=== PATIENT | female | born 1995 | race African-American/Black ===

== ENCOUNTER 2024-01-28 13:23 | Emergency (ER) | payer OTHER, SELFPAY ==
--- NOTE | ~2024-01-28 | US_ITS ---
EXAMINATION: ULTRASOUND PELVIC, CLINICAL INFORMATION: . Abdominal pain. COMPARISON: None. TECHNIQUE: Transabdominal imaging. Spectral Doppler and color Doppler exam was utilized. LMP: Uncertain FINDINGS: UTERUS: There is a single intrauterine gestation. motion and cardiac activity present. heart rate 150 bpm. lie is cephalic. Posterior's placenta. biometrics: 1.. Biparietal diameter. 4.53 cm. 19 weeks 5 days. 2. Occipital frontal diameter. 5.98 cm. 20 weeks 3 days. 3. Head circumference. 17.27 cm. 19 weeks 6 days. 4. Abdominal circumference. 14.06 cm. 19 weeks 4 days. 5. Femur length. 2.98 cm. 19 weeks 2 days. Gestational age from today's measurements 19 weeks 5 days. [place] 06/18/2024. Estimated weight 0 lbs. 10 oz. US/US OB limited IMPRESSION: Single intrauterine gestation with estimated gestational age of 19 weeks 5 days. heart rate 150 bpm. Electronically signed by: Ramos Hoffman MD 01/28/2024 03:25 PM EDT
[2024-01-28 13:41] VITALS: BP 140/72; PULSE 99; RESP 18; TEMP 37; O2SAT 100; BMI 22.6
--- NOTE | 2024-01-28 13:42 | ED.ABDPAIN ---
HPI - Abdominal Pain General Chief Complaint: Abdominal Pain Stated Complaint: Abd pain Time Seen by Provider: 01/28/24 15:54 Source: patient Mode of arrival: ambulatory Limitations: language barrier (Lux[place]bour[place] Creole speaking only, [employer] machine tool builder used) History of Present Illness ED Provider: Dr. Goyo Carpio HPI narrative: 28-year-old female Luxembour[place] Creole speaking only with sickle cell anemia last menstrual period 09/19/2024, 18 weeks and 4 days by dates who presents emergency department for evaluation of abdominal pain x2 weeks and foul-smelling urine x1 month. Patient states she has been having intermittent lower abdominal pain for the last 2 weeks. She states the last 1-2 minutes but comes on frequently. She states the pain often wakes her up at night. She states she has had no appetite and has had nausea but no vomiting. She denied fever, chills, cough, chest pain, shortness of breath, weakness or fatigue. She has noted urinary frequency and dysuria with a foul odor to her urine. The patient has not had any care for this . She states she lives in [place]. Related Data Previous Rx's ?Medication ?Instructions ?Recorded acetaminophen 500 mg tablet 500 mg PO Q6H PRN fever or pain 01/28/24 (Tylenol Extra Strength) #30 tabs cephalexin 500 mg capsule 500 mg PO TID 5 days #15 caps 01/28/24 ondansetron 4 mg disintegrating 4 mg PO Q6-8H PRN nausea and 01/28/24 tablet vomiting #20 tabs vitamins no.163-iron 1 tab PO DAILY 90 days #90 tabs 01/28/24 bis-gly 20 mg-folate no.10 1 mg tablet Allergies Allergy/AdvReac Type Severity Reaction Status Date / Time No Known Allergies Allergy Verified 01/28/24 13:45 Review of Systems Review of Systems Yes all other systems are reviewed and are negative [facility] Past Medical History [facility] Narrative: Social history: She denies tobacco, alcohol and drug use Physical Exam ED Vital Signs: Vital Signs - 24 hr 01/28/24 13:41 01/28/24 15:43 Temperature 98.6 F 98.2 F Pulse Rate 99 83 Respiratory Rate 18 16 Blood Pressure 140/72 H 111/71 Pulse Oximetry 100 97 Oxygen Delivery Method Room Air Room Air BMI result Body Mass Index 22.6 Vital signs revealed an elevated blood pressure of 140/72 on initial presentation but without treatment corrected to 111/71-initial elevated blood pressure may have been secondary to anxiety Exam: General: Awake, alert in no distress Head: Normocephalic, atraumatic EENT: PERRL, Lids normal, sclera normal, conjunctiva normal, nose normal , ears normal, throat without erythema or exudates Neck: Supple, no adenopathy Lung: breath sounds symmetric, no wheezing, rales or rhonchi Chest: symmetric movement, nontender Heart: regular rate and rhythm, normal S1, S2 no murmurs or rubs Abdomen: soft, gravid uterus with no tenderness, normoactive bowel sounds, no rebound, no voluntary or involuntary guarding Back: no vertebral tenderness, no CVAT Extremities: no deformities, moves all extremities symmetrically Neuro: Awake, alert, oriented, normal speech, cranial nerves intact, moves all extremities symmetrically Psych: Pleasant, cooperative Course Course Course Narrative: This is a Rapid Medical Examination (RME) performed by Shanika Samaniego PA-C in triage. Full HPI, ROS, assessment and treatment plan per primary provider in the Main ED. 28 yo [place] Creole speaking female here w/ lower abdominal pain/ pressure x2 wks. admits her urine has foul odor. no vaginal bleeding or discharge, dysuria. has not followed up with OBGYN for this . the last time she was a physician was when she was told she was . + well appearing, gravid abdomen. Plan: labs, UA, ultrasound Medical Decision Making Medical Decision Making MDM Narrative: 28-year-old female Luxem[place] Creole speaking only with sickle cell anemia last menstrual period 09/19/2024, 18 weeks and 4 days by dates who presents emergency department for evaluation of intermittent, brief (lasting 1-2 minutes but frequent) abdominal pain x2 weeks and foul-smelling urine x1 month. Patient has had no care. Vital signs initially revealed an elevated blood pressure but this corrected without treatment-most likely caused by anxiety. Physical examination did reveal gravid uterus with no abdominal tenderness. Differential diagnosis: ?Includes but is not limited to ectopic , miscarriage, uterine ligament sprain, electrolyte abnormalities, anemia, urinary tract Following evaluation was ordered: CBC, CMP, magnesium, quantitative beta-hCG, B12 and folate, iron profile, urinalysis, Ob pelvic and transvaginal ultrasound Patient was initially treated with the following: Zofran 4 mg ODT and Keflex 500 mg orally Course: Patient's laboratory evaluation did reveal normocytic anemia with an H&H of 8.3 and 22.2-patient was relatively asymptomatic and I suspect that this is due to her sickle cell disease and not related to blood loss or her . Patient's iron profile was normal and B12 and folate were pending. Patient has a electrolyte abnormalities which is secondary to her nausea vomiting and poor food and fluid intake. Patient's urinalysis was positive for leukocyte esterase, she had 6-10 WBCs and 4+ bacteria therefore I will treat her for urinary tract infection with Keflex 500 mg 3 times a day for 5 days. Patient was also given prescription for Zofran 4 mg ODT every 6-8 hours as needed for nausea and vomiting and Tylenol 1000 mg every 6 hours as needed for pain. Patient's abdominal pain in his most likely secondary to uterine ligaments sprain. Patient's ultrasound revealed a single intrauterine 19 weeks and 5 days which is similar to her LMP estimated gestational age. I did discuss these findings with the patient and I did tell her that she is a high-risk secondary to her sickle cell anemia and that she needs to contact [facility] for care. Patient was also prescribed vitamins with iron. She was given printed and verbal instructions and discharged home Admission/Observation Consideration of admission/observation: Escalation of care including admission/observation considered Lab Data MDM Lab Attestation statement: I reviewed the patient's lab results. My independent interpretation patient's laboratory evaluation as follows: Elevated WBC 89206. Normocytic anemia with an H&H of 8.3 and 22.2-most likely secondary to her sickle cell disease, elevated platelet count 075250, low potassium 2.9, elevated chloride 109, low CO2 of 18-most likely caused by nausea and vomiting secondary to and poor fluid in fluid intake. Quantitative beta-hCG was 34,665. Urinalysis was positive for leukocyte esterase, 6-10 RBCs and 4+ bacteria-consistent with a urinary tract infection. Iron profile was normal and B12 and folate tests are pending. 01/28/24 14:18 01/28/24 14:18 Labs: Lab Results 08/30/24 Range/Units 14:18 WBC 11.3 H (4.8-10.8) X10*3/uL RBC 2.64 L (4.20-5.50) X10*6/uL Hgb 8.3 L (12.0-16.0) g/dl Hct 22.2 L (37.0-47.0) % MCV 84.1 (80.0-98.0) fL MCH 31.4 (27.0-33.0) pg MCHC 37.4 H (31.0-35.0) g/dl RDW 13.2 (11.0-16.0) % Plt Count 469 H (160-400) X10*3/uL MPV 8.7 L (9.4-12.3) fL Immature Gran % (Auto) Cancelled Neut % (Auto) Cancelled Lymph % (Auto) Cancelled [place] % (Auto) Cancelled Eos % (Auto) Cancelled Baso % (Auto) Cancelled Lymph # (Auto) Cancelled [place] # (Auto) Cancelled Eos # (Auto) Cancelled Baso # (Auto) Cancelled Abs Immat Gran (auto) Cancelled Absolute Neuts (auto) Cancelled Absolute Nucleated RBC 0.240 H (0.0-0.012) X10*3/uL Nucleated RBC % (auto) 2.1 H (0.0-0.2) /100WBC Neutrophils % (Manual) 66 (45-73) % Band Neutrophils % 1 L (3-5) % Lymphocytes % (Manual) 25 (20-40) % Monocytes % (Manual) 8 (2-11) % Abs Neuts (Manual) 7.6 (2.0-8.3) X10*3/uL Lymphocytes # (Manual) 2.8 (1.2-4.9) X10*3/uL Monocytes # (Manual) 0.9 (0.1-1.2) X10*3/uL Nucleated RBCs 6 H (0-0) /100WBC Platelet Estimate INCREASED (NORMAL) Plt Morphology Comment NORMAL RBC Morphology NOTED Target Cells 1+ (5-14) /OIF Schistocytes 1+ (0-2) /OIF Sodium 137 (135-145) mmol/L Potassium 2.9 L* (3.3-5.1) mmol/L Chloride 109 H (96-108) mmol/L Carbon Dioxide 18 L (22-29) mmol/L Anion Gap 13 (12-20) BUN 3 L (9-16) mg/dL Creatinine 0.55 (0.5-1.4) mg/dL Estim Creat Clear Calc 124.8 Estimated GFR > 60 Random Glucose 77 (60-115) mg/dL Calcium 8.9 (8.4-10.2) mg/dL Magnesium 1.8 (1.6-2.6) mg/dL Iron 86 (30-160) mcg/dL TIBC 239 (228-428) mcg/dL % Saturation 36 (15-50) % Unsat Iron Binding 153 ug/dL Total Bilirubin 0.6 (0.0-1.0) mg/dL AST 24 (5-31) U/L ALT 14 (0-31) U/L Alkaline Phosphatase 84 (39-117) U/L Total Protein 7.0 (6.5-8.0) g/dL Albumin 3.6 (3.5-5.0) g/dL Beta HCG, Quant 32402 mIU/mL Urine Color Yellow Urine Appearance Clear Urine pH 6.5 (5.0-9.0) Ur Specific [place] 1.015 (1.005-1.025) Urine Protein Negative (Neg-Trace) mg/dL Urine Glucose (UA) Negative (Negative) mg/dL Urine Ketones Negative (Negative) mg/dL Urine Blood Negative (Negative) Urine Nitrite Negative (Negative) Ur Leukocyte Esterase Trace H (Negative) Urine RBC 0-2 (0-2) /HPF Urine WBC 6-10 H (0-5) /HPF Ur Squamous Epith Cells 3-5 (0-2) /HPF Urine Bacteria 4+ (None Seen) Hyaline Casts 0-2 (0-2) /LPF Radiology Impression Discussion of test interpretation with radiology: I discussed test interpretation with the radiologist Radiologist Impression: EXAMINATION: ULTRASOUND PELVIC, CLINICAL INFORMATION: . Abdominal pain. COMPARISON: None. TECHNIQUE: Transabdominal imaging. Spectral Doppler and color Doppler exam was EXAMINATION: ULTRASOUND PELVIC, CLINICAL INFORMATION: . Abdominal pain. FINDINGS: UTERUS: There is a single intrauterine gestation. motion and cardiac activity present. heart rate 150 bpm. lie is cephalic. Posterior's placenta. biometrics: 1.. Biparietal diameter. 4.53 cm. 19 weeks 5 days. 2. Occipital frontal diameter. 5.98 cm. 20 weeks 3 days. 3. Head circumference. 17.27 cm. 19 weeks 6 days. 4. Abdominal circumference. 14.06 cm. 19 weeks 4 days. 5. Femur length. 2.98 cm. 19 weeks 2 days. Gestational age from today's measurements 19 weeks 5 days. [place] 06/18/2024. Estimated weight 0 lbs. 10 oz. IMPRESSION: Single intrauterine gestation with estimated gestational age of 19 weeks 5 days. heart rate 150 bpm. Dictated By: Ramos Hoffman MD Signed By: <Electronically signed by Ramos Hoffman MD in OV> Prescription Management I considered prescription management with: Pain Medication and Antibiotic Chronic Conditions Patient?s care impacted by: Other (Sickle cell disease) Discharge Plan Discharge Clinical Impression: Second trimester , Intrauterine Abdominal pain Qualifiers: Abdominal location: lower abdomen, unspecified Qualified Code(s): R10.30 - Lower abdominal pain, unspecified Sickle cell anemia Qualifiers: Sickle-cell associated disorders: without crisis Qualified Code(s): D57.1 - Sickle-cell disease without crisis Patient Disposition: Home, Self-Care Instructions: at 19 to 22 Weeks (ED) Additional Instructions: Your blood work was normal except for anemia which is most likely caused by your sickle cell anemia. You have a normocytic anemia with a hemoglobin and hematocrit of 8.3 and 22.2. I did add iron studies, folate and B12 and these tests are pending. I am going to start you on a vitamin with iron, you need to take this once a day for the rest of your . Your urinalysis is concerning for possible urine infection therefore I am starting you on Keflex 500 mg pills, 1 pill 3 times a day for 5 days. Your ultrasound revealed a single intrauterine , you are 9 weeks and 5 days with a delivery date estimated for 06/18/2024. Please see the ultrasound report below you should show this to the doctors at [facility]. Given your sickle cell anemia you are a high-risk and will need to get care at [facility] since they have the facilities to take care of you in the event that there are any issues with your baby. I want you to call [facility] on [place] morning to get a visit as soon as possible with the next available provider. This time I think that the pain that your experiencing is due to stretching of the ligaments holding your uterus in place and I am prescribing Tylenol 500 mg pills, 2 pills every 6 hours as needed for pain. Do not take any NSAIDs (ibuprofen, Motrin, Advil, naproxen , Aleve or aspirin-these medicines are contraindicated in ) Please return to the emergency department if your symptoms get worse or if you develop any symptoms that are concerning to you. EXAMINATION: ULTRASOUND PELVIC, FINDINGS: UTERUS: There is a single intrauterine gestation. motion and cardiac activity present. heart rate 150 bpm. lie is cephalic. Posterior's placenta. biometrics: 1.. Biparietal diameter. 4.53 cm. 19 weeks 5 days. 2. Occipital frontal diameter. 5.98 cm. 20 weeks 3 days. 3. Head circumference. 17.27 cm. 19 weeks 6 days. 4. Abdominal circumference. 14.06 cm. 19 weeks 4 days. 5. Femur length. 2.98 cm. 19 weeks 2 days. Gestational age from today's measurements 19 weeks 5 days. [place] 06/18/2024. Estimated weight 0 lbs. 10 oz. IMPRESSION: Single intrauterine gestation with estimated gestational age of 19 weeks 5 days. heart rate 150 bpm. Dictated By: Ramos Hoffman MD Prescriptions: New cephalexin 500 mg capsule 500 mg PO TID 5 Days Qty: 15 0RF ondansetron 4 mg tablet,disintegrating 4 mg PO Q6-8H PRN (Reason: nausea and vomiting) Qty: 20 0RF PNV [id number] no.10 20 mg iron- 1 mg tablet 1 tab PO DAILY 90 Days Qty: 90 0RF acetaminophen [Tylenol Extra Strength] 500 mg tablet 500 mg PO Q6H PRN (Reason: fever or pain) Qty: 30 0RF Print Language: Luxem[place] Creole
[2024-01-28 14:40] LABS: Hematocrit 22.2 % (37.0-47.0); Hemoglobin 8.3 g/dl (12.0-16.0); Mean Corpuscular HGB Conc 37.4 g/dl (31.0-35.0); Mean Corpuscular Hemoglobin 31.4 pg (27.0-33.0); Mean Corpuscular Volume 84.1 fL (80.0-98.0); Mean Platelet Volume 8.7 fL (9.4-12.3); NRBC Pct Auto 2.1 /100WBC (0.0-0.2); Platelet Count 469 X10*3/uL (160-400); Red Blood Count 2.64 X10*6/uL (4.20-5.50); Red Cell Distribution Width 13.2 % (11.0-16.0); White Blood Count 11.3 X10*3/uL (4.8-10.8)
[2024-01-28 14:45] LABS: Appearance Urine Clear; Color Urine Yellow; Glucose Urine UA Negative (Negative); Leukocyte Esterase Urine Trace (Negative); Nitrite Urine Negative (Negative); PH 6.5 (5.0-9.0); Specific Gravity - Urine 1.015 (1.005-1.025); UMIC TRIGGER UACC YES; Urine Blood Negative (Negative); Urine Ketones Negative (Negative); Urine Protein Negative (Neg-Trace)
[2024-01-28 14:52] LABS: Bacteria Urine 4+ (None Seen); Hyaline Casts Urine 0-2 /LPF (0-2); RBC Urine 0-2 /HPF (0-2); UACC Culture Trigger YES
[2024-01-28 15:15] LABS: Alanine Aminotransferase 14 U/L (0-31); Albumin Level 3.6 g/dL (3.5-5.0); Alkaline Phosphatase 84 U/L (39-117); Anion Gap 13 (12-20); Aspartate Amino Transferase 24 U/L (5-31); Band Neutrophils Percent 1 % (3-5); Bilirubin Total 0.6 mg/dL (0.0-1.0); Blood Urea Nitrogen 3 mg/dL (9-16); Calcium 8.9 mg/dL (8.4-10.2); Carbon Dioxide 18 mmol/L (22-29); Chloride 109 mmol/L (96-108); Creatinine Clr Calc Pharmacy 124.8; Estimated Glomerular Filt Rate > 60; Glucose Random 77 mg/dL (60-115); Lymphocytes Absolute Manual 2.8 X10*3/uL (1.2-4.9); Lymphocytes Percent Manual 25 % (20-40); Magnesium 1.8 mg/dL (1.6-2.6); Monocytes Absolute Manual 0.9 X10*3/uL (0.1-1.2); Monocytes Percent Manual 8 % (2-11); Neutrophils Absolute Manual 7.6 X10*3/uL (2.0-8.3); Neutrophils Percent Manual 66 % (45-73); Potassium 2.9 mmol/L (3.3-5.1); Sodium 137 mmol/L (135-145)
[2024-01-28 15:17] LABS: Nucleated Red Blood Cells 6 /100WBC (0-0); RBC Morphology NOTED; Schistocytes 1+ (0-2) /OIF; Target Cells 1+ (5-14) /OIF
[2024-01-28 15:20] LABS: Platelet Estimate INCREASED (NORMAL); Platelet Morphology Comment NORMAL
[2024-01-28 15:43] VITALS: BP 111/71; PULSE 83; RESP 16; TEMP 36.8; O2SAT 97
[2024-01-28 15:48] LABS: HCG Quantitative 34665 mIU/mL
--- NOTE | 2024-01-28 15:55 | PC.NURSE ---
Pt comes to ED today for c/o abd pain. 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 Per CT, Pt is approx 19 weeks . VSS, afebrile. 20G placed in LAC
[2024-01-28 16:44] LABS: Iron 86 mcg/dL (30-160); Percent Iron Saturation 36 % (15-50); Total Iron Binding Capacity 239 mcg/dL (228-428); Unsaturated Iron Binding 153 ug/dL
[2024-01-28 17:47] VITALS: BP 104/59; PULSE 78; RESP 16; TEMP 37.2; O2SAT 98
[2024-01-28] MEDS: Ondansetron ODT 4 MG TAB.RAPDIS TRANSLINGU (17:52)
[2024-01-28] MEDS: cephALEXin 500 MG CAPSULE PO (17:53)
[2024-01-28 18:01] VITALS: BP 104/59; PULSE 78; RESP 16; TEMP 37.2; O2SAT 98
[2024-01-28 18:08] VITALS: BP 104/59; PULSE 78; RESP 16; TEMP 37.2; O2SAT 98
[2024-01-28 18:43] LABS: Folate 12.8 ng/mL (> or = 4.0); Vitamin B12 215 pg/mL (200-900)
== END 2024-01-28 18:34 | disposition home or self-care (01) ==
PROVIDERS: Physician Assistant Medical; Emergency Provider Emergency Medicine Emergency Medical Services
DX: O26.891 Other specified pregnancy related conditions, first trimester (principal); R10.9 Unspecified abdominal pain; Z3A.19 19 weeks gestation of pregnancy
CPT/HCPCS: 36415; 76815; 80053; 81001; 82607; 82746; 83540; 83735; 84702; 85007; 85025; 85027; 87086; 87088; 87186; 99284